=== PATIENT | male | born 1995 | race Caucasian/White ===

== ENCOUNTER 2018-10-30 01:02 | Emergency (ER) | payer OTHER ==
[2018-10-30 01:08] VITALS: BP 144/86
--- NOTE | 2018-10-30 01:23 | EDPHY ---
H & P Stated Complaint: LEFT BIG TOE PAIN BRUISING, DROPPED PLEXIGLASS ON IT 2 DAYS AGO Time Seen by Provider: 10/30/18 01:17 HPI/ROS: HPI: The patient presents with left great toe pain and bruising which has been present for the last 2 days after dropping a large heavy piece of plexiglass on it. He has been able to walk and move his toe but the pain is severe. It is aching and mostly involves the nail bed. He denies any numbness or tingling of the toe. REVIEW OF SYSTEMS 10 systems were reviewed and negative with the exception of the elements mentioned in the history of present illness. PMHx: Healthy TRAUMA PHYSICAL General Appearance: Alert, no distress Head: Atraumatic Respiratory: Breathing comfortably Skin: No lacerations, No abrasion Extremities: Left great toe with subungual hematoma of about 70% of the nail bed proximally, there is ecchymoses throughout the distal phalanx, there is full range of motion at the IP joint, there is sensation intact to light touch Source: Patient Exam Limitations: No limitations - Personal History Current Tetanus/Diphtheria Vaccine: Yes - Medical/Surgical History Hx Asthma: No Hx Chronic Respiratory Disease: No Hx Diabetes: No Hx Cardiac Disease: No Hx Renal Disease: No Hx Cirrhosis: No Hx Alcoholism: No Hx HIV/AIDS: No Hx Splenectomy or Spleen Trauma: No Other PMH: DENIES - Social History Smoking Status: Former smoker Constitutional: Initial Vital Signs Temperature (C) 36.3 C 10/30/18 01:05 Heart Rate 85 10/30/18 01:05 Respiratory Rate 20 10/30/18 01:05 Blood Pressure 144/86 H 10/30/18 01:05 O2 Sat (%) 96 10/30/18 01:05 O2 Delivery Mode Room Air Allergies/Adverse Reactions: No Known Allergies Allergy (Unverified 10/30/18 01:05) Home Medications: Medication Instructions Recorded NK [No Known Home Meds] 10/30/18 Medical Decision Making - Diagnostics Imaging Results: X-ray left great toe shows no fracture, no dislocation, interpreted by me, radiology interpretation is pending. Imaging: I viewed and interpreted images myself Procedures: Digital block was performed on left great toe using 1% lidocaine with 27 gauge needle, total of 2 mL was injected in a ring block fashion. Using an 18 gauge needle on the proximal nail bed a puncture was made, I was able to drain about 1 mL of blood. Patient tolerated the procedure well with no immediate complications. Differential Diagnosis: This is a 23-year-old male who is sustained a subungual hematoma to his left great toe after dropping a heavy object on it. He may also have a fracture. Departure - Departure Disposition: Home, Routine, Self-Care Clinical Impression: Subungual hematoma of foot Qualifiers: Encounter type: initial encounter Laterality: left Qualified Code(s): S90.222A - Contusion of left lesser toe(s) with damage to nail, initial encounter Condition: Good Instructions: Subungual Hematoma (ED) Additional Instructions: You can do warm water soaks when you return home. Referrals: Ciaran Luong DO [Doctor of Osteopathy] - As per Instructions
== END 2018-10-30 02:15 | disposition home or self-care (01) ==
PROC: 0H9RXZZ Drainage of Toe Nail, External Approach (ICD-10-PCS; principal; 2018-10-30)
DX: S90.212A Contusion of left great toe with damage to nail, initial encounter (principal); W22.8XXA Striking against or struck by other objects, initial encounter; Y92.89 Other specified places as the place of occurrence of the external cause; Y93.9 Activity, unspecified; Y99.0 Civilian activity done for income or pay